=== PATIENT | male | born 1985 | race Caucasian/White ===

== ENCOUNTER 2019-05-06 22:17 | Emergency (ER) | payer OTHER, SELFPAY ==
[~2019-05-06 22:17] MED LIST: ISOVUE-370 76%-LOCM 1 ML ONE
[2019-05-06] MEDS ORDERED: Fentanyl 100 MCG/2 ML VIAL ONE (22:32)
[2019-05-06] MEDS ORDERED: Adacel (T-DAP) 0.5 ML SYRINGE ONE (22:32)
[2019-05-06 22:38] LABS: #Basophils 0.1 thou/uL (0.0-0.2); #Eosinphils 0.2 thou/uL (0.0-0.7); #Lymphocytes 2.4 thou/uL (1.20-3.40); #Monocytes 0.5 thou/uL (0.11-0.59); %Basophils 0.5 % (0.0-1.0); %Eosinophils 1.7 % (0.0-10.0); %Lymphocytes 19.9 % (21.0-51.0); %Monocytes 4.1 % (0.0-10.0); %Neutrophils 73.9 % (42.0-75.0); Hemoglobin 16.7 g/dL (14.0-18.0); Mean Corpuscular HGB CONC 34.1 g/dL (32.0-36.0); Mean Corpuscular Hemoglobin 31.5 pg (27.0-31.0); Mean Corpuscular Volume 92.4 fL (78.0-98.0); Platelet Count 166 thou/uL (130-400); RBC Distribution Width 11.7 % (11.5-14.5); White Blood Cell (WBC) Count 12.2 thou/uL (4.8-10.8)
[2019-05-06 22:44] LABS: PTT 26.3 SEC (22.9-36.1); Prothrombin Time 13.5 SEC (12.0-14.7)
--- NOTE | 2019-05-06 22:57 | CT ---
CT BRAIN NONCONTRAST: DATE: 05/06/2019 HISTORY: 34-year-old male status post acute head trauma, 20 foot fall. FINDINGS: There is no evidence of acute intra-axial or extra-axial hemorrhage. There is no midline shift or any other mass effect. There is no extra-axial fluid collection. There is no evidence of obstructive hydrocephalus. Calvarium is intact. There is a patchy, approximately 1 cm ill-defined focus of low at tenuation in the right frontal gill radiata. This is not hemorrhage. Etiology is uncertain. Paranasal sinuses and tympanomastoid cavities are grossly clear. IMPRESSION: 1. No acute intracranial traumatic injury. 2.nonspecific small patchy focal hypodensity in the right frontal deep cerebral white matter.
--- NOTE | 2019-05-06 22:58 | CT ---
CT CERVICAL SPINE NONCONTRAST: DATE: 05/06/2019 HISTORY: cervical trauma FINDINGS: There are no jumped or perched facets. There is no evidence of acute fracture. The vertebral body hei ghts are maintained. There is no prevertebral soft tissue swelling. IMPRESSION: No evidence of acute fracture or acute traumatic subluxation.
[2019-05-06 22:59] LABS: ALT (SGPT) 344 U/L (8-55); AST (SGOT) 197 U/L (5-34); Albumin 4.2 g/dL (3.5-5.0); Alkaline Phosphatase 70 U/L (40-150); Anion Gap 15 mmol/L (10-20); BUN (Urea Nitrogen) 11 mg/dL (8.9-20.6); Bilirubin, Total 0.7 mg/dL (0.2-1.2); Calc. Creatinine Clearance 0 mL/min (70-130); Calcium 9.6 mg/dL (7.8-10.44); Carbon Dioxide 21 mmol/L (22-29); Chloride 106 mmol/L (98-107); Estimated GFR-MDRD 87; Glucose 107 mg/dL (70-105); Potassium 4.4 mmol/L (3.5-5.1); Protein, Total 7.2 g/dL (6.0-8.3); Sodium 138 mmol/L (136-145)
--- NOTE | 2019-05-06 23:05 | CT ---
CT THORAX WITH CONTRAST CT ABDOMEN WITH CONTRAST CT PELVIS WITH CONTRAST CT THORACIC SPINE WITH CONTRAST CT LUMBAR SPINE WITH CONTRAST: (Trauma protocol) DATE: 05/06/2019 HISTORY: Trauma to the chest, abdomen, and pelvis Level 2 trauma report of CTs of brain, C-spine, chest, abdomen, and pelvis, to Dr. Cervantes at 11:02 PM on 05/06/2019 TECHNIQUE: IV administration of iodinated contrast media. No oral contrast media. Single phase scans of thorax, abdomen, and pelvis. Sagittal reconstructions of thoracic and lumbar spine. FINDINGS: Lungs: No contusion. Prominent calcified granuloma in right upper lobe. Pleura: No pneumothorax or hemothorax. Thoracic aorta: No dissection or rupture. Mediastinum: No hematoma. Abdomen and pelvis: Liver: No laceration Spleen: No laceration Pancreas: No surrounding fluid or fat stranding. Kidneys: No hydronephrosis or laceration. Bladder: No gross evidence of rupture. Abdominal aorta: No dissection or rupture. Small bowel: No dilation. Colon: No adjacent fat stranding. Free air: None. Free fluid: None. Skeleton: Ribs: No grossly displaced acute fracture. Sternum: No grossly displaced acute fracture. Thoracic spine: No acute compression fracture. Lumbar spine: No acute compression fracture. Pelvis: No grossly displaced acute fracture. No dislocation. Large number of mildly enlarged lymph nodes in the bilateral axilla and adjacent regions around bilat eral chest fields, and bilateral inguinal regions. IMPRESSION: 1. No evidence of acute traumatic injury within the thorax, abdomen, or pelvis. 2. Lymphadenopathy as mentioned above. Exact etiology uncertain.
[2019-05-06] MEDS ORDERED: Acetaminophen 500 MG TAB ONE (23:15)
[2019-05-06] MEDS ORDERED: Ketorolac Tromethamine 30 MG/ML VIAL ONE (23:15)
--- NOTE | 2019-05-06 23:20 | RAD ---
RADIOGRAPH CHEST 1 VIEW: Supine DATE: 05/06/2019 HISTORY: Chest trauma FINDINGS: There is no airspace density or pulmonary edema. The lateral costophrenic angles are sharp. Supine po sitioning makes this study insensitive for the detection of pneumothorax. IMPRESSION: No acute pulmonary findings.
== END 2019-05-07 00:11 | disposition home or self-care (01) ==
LOC: ERS 22:17
DX: R79.89 Other specified abnormal findings of blood chemistry (principal); G93.9 Disorder of brain, unspecified; W17.89XA Other fall from one level to another, initial encounter
CPT/HCPCS: 70450; 71045; 71260; 72125; 74177; 80053; 84484; 85025; 85610; 85730; 86850; 86900; 86901; 90471; 90715; 93005; 96374; 96375; J1885; J3010

== ENCOUNTER 2022-07-27 18:25 | Inpatient (IN) | payer MEDICAID, OTHER ==
[2022-07-27 20:58] VITALS: BMI 35.7
[2022-07-27] MEDS ORDERED: Ondansetron ODT 4 MG TAB PO PRN (21:39)
[2022-07-27] MEDS: Nicotine 14 MG PATCH TD SCH (22:12)
[2022-07-27] MEDS ORDERED: Carvedilol 6.25 MG TAB PO SCH (22:15)
[2022-07-28 00:25] LABS: Hemoglobin A1c 5.7 % (4.0-6.0)
[2022-07-28 00:28] LABS: Cardiac Risk 8.5 (Less than 4.5); Cholesterol 119 mg/dl (< 200 Desired); HDL Cholesterol 14 mg/dL (>60 Neg Risk); LDL Cholesterol, Calculated 79 mg/dL; Magnesium 2.1 mg/dL (1.6-2.6); Phosphorus 2.3 mg/dL (2.3-4.7); Triglycerides 129 mg/dL (Less than 150)
[2022-07-28 04:57] LABS: #Eosinphils 0.2 thou/uL (0.0-0.7); #Lymphocytes 2.3 thou/uL (1.20-3.40); #Monocytes 0.6 thou/uL (0.11-0.59); #Neutrophils 7.5 thou/uL (1.40-6.50); %Basophils 0.1 % (0.0-1.0); %Eosinophils 1.5 % (0.0-10.0); %Lymphocytes 21.9 % (21.0-51.0); %Monocytes 5.8 % (0.0-10.0); %Neutrophils 70.8 % (42.0-75.0); Mean Corpuscular HGB CONC 33.1 g/dL (32.0-36.0); Mean Corpuscular Hemoglobin 31.4 pg (27.0-31.0); Mean Corpuscular Volume 94.8 fL (78.0-98.0); Mean Platelet Volume 8.6 fL (7.4-10.4); Platelet Count 133 thou/uL (130-400); RBC Distribution Width 12.4 % (11.5-14.5); Red Blood Cell (RBC) Count 4.77 mill/uL (4.70-6.10); White Blood Cell (WBC) Count 10.5 thou/uL (4.8-10.8)
[2022-07-28 05:25] LABS: ALT (SGPT) 125 U/L (8-55); AST (SGOT) 78 U/L (5-34); Albumin 3.9 g/dL (3.5-5.0); Alkaline Phosphatase 57 U/L (40-110); Anion Gap 15 mmol/L (10-20); BUN (Urea Nitrogen) 13 mg/dL (8.9-20.6); Bilirubin, Total 1.4 mg/dL (0.2-1.2); Calc. Creatinine Clearance 178 mL/min (70-130); Carbon Dioxide 22 mmol/L (22-29); Chloride 103 mmol/L (98-107); Estimated GFR 94; Glucose 102 mg/dL (70-105); Potassium 4.2 mmol/L (3.5-5.1); Protein, Total 6.9 g/dL (6.0-8.3); Sodium 136 mmol/L (136-145)
[2022-07-28] MEDS ORDERED: Furosemide 40 MG/4 ML VIAL SLOW IVP SCH (09:00)
[2022-07-28] MEDS: Sacubitril 49 MG/Valsartan 51 MG TABLET PO SCH ×2 (09:17→20:20)
[2022-07-28] MEDS: Spironolactone 25 MG TAB PO SCH (09:17)
[2022-07-28] MEDS: Enoxaparin Sodium 40 MG/0.4 ML SYRINGE SC SCH (09:17)
[2022-07-28] MEDS: Carvedilol 6.25 MG TAB PO SCH ×2 (09:17→16:46)
[2022-07-28] MEDS: (Dapagliflozin Propanediol [Farxiga] 10 MG Tablet) PO SCH (09:19)
[2022-07-28] MEDS: Furosemide 40 MG/4 ML VIAL SLOW IVP SCH (20:20)
[2022-07-28] MEDS: Nicotine 14 MG PATCH TD SCH (21:55)
[2022-07-29 04:46] LABS: #Eosinphils 0.1 thou/uL (0.0-0.7); #Lymphocytes 3.3 thou/uL (1.20-3.40); #Monocytes 0.8 thou/uL (0.11-0.59); %Basophils 0.3 % (0.0-1.0); %Eosinophils 1.2 % (0.0-10.0); %Lymphocytes 26.8 % (21.0-51.0); %Monocytes 6.8 % (0.0-10.0); %Neutrophils 64.9 % (42.0-75.0); Hemoglobin 16.7 g/dL (14.0-18.0); Mean Corpuscular HGB CONC 32.8 g/dL (32.0-36.0); Mean Corpuscular Hemoglobin 30.8 pg (27.0-31.0); Mean Corpuscular Volume 94.1 fL (78.0-98.0); Mean Platelet Volume 8.3 fL (7.4-10.4); Platelet Count 174 thou/uL (130-400); RBC Distribution Width 12.5 % (11.5-14.5); White Blood Cell (WBC) Count 12.3 thou/uL (4.8-10.8)
[2022-07-29 05:09] LABS: ALT (SGPT) 98 U/L (8-55); AST (SGOT) 52 U/L (5-34); Albumin 4.1 g/dL (3.5-5.0); Alkaline Phosphatase 61 U/L (40-110); Anion Gap 18 mmol/L (10-20); BUN (Urea Nitrogen) 21 mg/dL (8.9-20.6); Bilirubin, Total 1.3 mg/dL (0.2-1.2); Calc. Creatinine Clearance 147 mL/min (70-130); Calcium 9.5 mg/dL (7.8-10.44); Carbon Dioxide 20 mmol/L (22-29); Chloride 100 mmol/L (98-107); Estimated GFR 76; Globulin 3.7 g/dL (2.4-3.5); Glucose 113 mg/dL (70-105); Potassium 3.8 mmol/L (3.5-5.1); Protein, Total 7.8 g/dL (6.0-8.3); Sodium 134 mmol/L (136-145)
[2022-07-29] MEDS: Enoxaparin Sodium 40 MG/0.4 ML SYRINGE SC SCH (09:41)
[2022-07-29] MEDS: Sacubitril 49 MG/Valsartan 51 MG TABLET PO SCH ×2 (09:42→20:53)
[2022-07-29] MEDS: Spironolactone 25 MG TAB PO SCH (09:44)
[2022-07-29] MEDS: Carvedilol 6.25 MG TAB PO SCH (09:44)
[2022-07-29] MEDS: (Dapagliflozin Propanediol [Farxiga] 10 MG Tablet) PO SCH (09:46)
[2022-07-29] MEDS: Furosemide 40 MG/4 ML VIAL SLOW IVP SCH (10:26)
[2022-07-29] MEDS ORDERED: Lactated Ringer's 1,000 ML IV SCH (16:15)
[2022-07-29] MEDS ORDERED: Lactated Ringer's 500 ML IV SCH (19:00)
[2022-07-29] MEDS: Nicotine 14 MG PATCH TD SCH (20:53)
[2022-07-30] MEDS ORDERED: Acetaminophen 325 MG TAB PO PRN (04:35)
[2022-07-30 05:04] LABS: #Basophils 0.1 thou/uL (0.0-0.2); #Eosinphils 0.1 thou/uL (0.0-0.7); #Lymphocytes 2.7 thou/uL (1.20-3.40); #Monocytes 0.7 thou/uL (0.11-0.59); #Neutrophils 6.7 thou/uL (1.40-6.50); %Basophils 0.7 % (0.0-1.0); %Eosinophils 1.2 % (0.0-10.0); %Lymphocytes 26.4 % (21.0-51.0); %Monocytes 6.6 % (0.0-10.0); Hemoglobin 16.5 g/dL (14.0-18.0); Mean Corpuscular HGB CONC 33.6 g/dL (32.0-36.0); Mean Corpuscular Hemoglobin 31.4 pg (27.0-31.0); Mean Corpuscular Volume 93.5 fL (78.0-98.0); Mean Platelet Volume 8.4 fL (7.4-10.4); Platelet Count 185 thou/uL (130-400); RBC Distribution Width 12.2 % (11.5-14.5); Red Blood Cell (RBC) Count 5.25 mill/uL (4.70-6.10); White Blood Cell (WBC) Count 10.3 thou/uL (4.8-10.8)
[2022-07-30 05:24] LABS: ALT (SGPT) 90 U/L (8-55); AST (SGOT) 68 U/L (5-34); Albumin 3.8 g/dL (3.5-5.0); Alkaline Phosphatase 54 U/L (40-110); Anion Gap 17 mmol/L (10-20); BUN (Urea Nitrogen) 25 mg/dL (8.9-20.6); Bilirubin, Total 1.1 mg/dL (0.2-1.2); Calc. Creatinine Clearance 163 mL/min (70-130); Calcium 9.1 mg/dL (7.8-10.44); Carbon Dioxide 22 mmol/L (22-29); Chloride 100 mmol/L (98-107); Estimated GFR 85; Globulin 3.5 g/dL (2.4-3.5); Glucose 104 mg/dL (70-105); Potassium 3.9 mmol/L (3.5-5.1); Protein, Total 7.3 g/dL (6.0-8.3); Sodium 135 mmol/L (136-145)
[2022-07-30] MEDS: Spironolactone 25 MG TAB PO SCH (08:22)
[2022-07-30] MEDS: Enoxaparin Sodium 40 MG/0.4 ML SYRINGE SC SCH (08:22)
[2022-07-30] MEDS: (Dapagliflozin Propanediol [Farxiga] 10 MG Tablet) PO SCH (08:23)
[2022-07-30 15:53] VITALS: BP 107/56; TEMP 97.8
== END 2022-07-30 18:28 | disposition home or self-care (01) | DRG 308 ==
LOC: 2SW 20:40 → OBSVTOIN 07-28 16:07
PROVIDERS: ADMIT Student in an Organized Health Care Education/Training Program; ATTEND Family Medicine
DX: I47.2 Ventricular tachycardia (principal); I50.23 Acute on chronic systolic (congestive) heart failure; I42.8 Other cardiomyopathies; Z20.822 Contact with and (suspected) exposure to COVID-19; I48.0 Paroxysmal atrial fibrillation; F17.210 Nicotine dependence, cigarettes, uncomplicated; R74.01 Elevation of levels of liver transaminase levels; R77.8 Other specified abnormalities of plasma proteins; I08.3 Combined rheumatic disorders of mitral, aortic and tricuspid valves; I95.89 Other hypotension; Z95.810 Presence of automatic (implantable) cardiac defibrillator; Z79.899 Other long term (current) drug therapy; I25.2 Old myocardial infarction; Z90.89 Acquired absence of other organs; Z82.49 Family history of ischemic heart disease and other diseases of the circulatory system; Z91.030 Bee allergy status
CPT/HCPCS: 36415; 76705; 80053; 80061; 82553; 83036; 83735; 84100; 84443; 84484; 85025; 93306; 96372; 96374; G0378; J1650; J1940; J7120; U0003; U0005